=== PATIENT | female | born 1965 | race Caucasian/White ===

== ENCOUNTER → 2016-10-01 | Outpatient (CLI) | payer BC ==
--- NOTE | 2016-10-02 15:43 | Diagnostic Imaging Report ---
Bilateral screening mammogram 2D views with tomosynthesis The current study was also evaluated with a Computer Aided Detection (CAD) system. INDICATION: Screening. No current complaints stated on the questionnaire. COMPARISON: 09/18/2015. FINDINGS: The breasts are composed of heterogeneously dense parenchyma which may decrease mammographic sensitivity. Punctate calcifications are seen. Allowing for technique and positional differences, no suspicious change is seen. IMPRESSION: No significant change. ACR BI-RADS Category 2: Benign findings. Result letter will be mailed to the patient. Note: At least 10% of breast cancer is not imaged by mammography. Dictated by: Dictated on workstation # [id number]
== END ==
LOC: RAD 08:39
PROVIDERS: ATTEND Internal Medicine
DX: Z12.31 Encounter for screening mammogram for malignant neoplasm of breast (principal)
CPT/HCPCS: 77067

== ENCOUNTER → 2017-10-06 | Outpatient (CLI) | payer BC ==
--- NOTE | 2017-10-06 12:10 | Diagnostic Imaging Report ---
INDICATION: Routine screening. COMPARISON: Comparison is made with prior studies from 10/01/2016 and 09/18/2015. TECHNIQUE: 2D and 3D bilateral screening mammography was performed with computer-aided detection (CAD) system. FINDINGS: Both breasts are heterogeneously dense, limiting the sensitivity of mammography. Intraparenchymal lymph nodes in the outer right breast appear stable. No new mass or malignant appearing microcalcifications are seen. The axillae are unremarkable. IMPRESSION: No mammographic features suspicious for malignancy are identified. ACR BI-RADS Category 2: Benign findings. Result letter will be mailed to the patient. Note: At least 10% of breast cancer is not imaged by mammography. Dictated by: Dictated on workstation # [id number]
== END ==
LOC: RAD 09:26
PROVIDERS: ATTEND Internal Medicine
DX: Z12.31 Encounter for screening mammogram for malignant neoplasm of breast (principal)
CPT/HCPCS: 77067

== ENCOUNTER 2017-10-15 09:05 | Outpatient (RCR) | payer BC ==
[2017-10-13 13:10] VITALS: BP 125/70
[2017-10-13] MEDS: IRON SUCROSE 200 MG/10 ML (VENOFER) VIAL IV SCH (13:20)
[~2017-10-15] VITALS: Ht 165.1 cm; Wt 79.4 kg
[2017-10-15 09:05] VITALS: BP 124/72
[~2017-10-15 09:05] MED LIST: IRON SUCROSE 200 MG/10 ML (VENOFER) VIAL IV ONE
[2017-10-15] MEDS: IRON SUCROSE 200 MG/10 ML (VENOFER) VIAL IV SCH (09:11)
== END 2017-11-06 | disposition home or self-care (01) ==
LOC: SDC 09:05 → EDSTATUS 10-23 10:24
PROVIDERS: ATTEND Internal Medicine
DX: D64.9 Anemia, unspecified (principal)
CPT/HCPCS: 96365

== ENCOUNTER 2018-03-08 09:59 | Outpatient (RCR) | payer BC ==
[2018-03-05] MEDS: IRON SUCROSE 200 MG/10 ML (VENOFER) VIAL IV SCH (16:10)
[2018-03-05 17:00] VITALS: BP 113/73
[~2018-03-08] VITALS: Ht 165.1 cm; Wt 79.4 kg
[2018-03-08] MEDS ORDERED: IRON SUCROSE 200 MG/10 ML (VENOFER) VIAL IV ONE (10:00)
[2018-03-08 10:14] VITALS: BP 119/71
[2018-03-08] MEDS: IRON SUCROSE 200 MG/10 ML (VENOFER) VIAL IV SCH (10:14)
== END 2018-06-03 | disposition home or self-care (01) ==
LOC: SDC 09:59
PROVIDERS: ATTEND Internal Medicine
DX: D64.9 Anemia, unspecified (principal)
CPT/HCPCS: 96365

== ENCOUNTER → 2018-12-14 | Outpatient (CLI) | payer BC ==
--- NOTE | 2018-12-14 12:45 | Diagnostic Imaging Report ---
INDICATION: Routine screening. COMPARISON: Comparison is made with prior mammograms from 10/06/2017 and 10/01/2016. TECHNIQUE: 2-D and 3-D bilateral screening mammography was performed. The current study was also evaluated with a Computer Aided Detection (CAD) system. 3-D tomosynthesis was also performed and reviewed. FINDINGS: There are benign calcifications bilaterally. No mass or malignant-appearing microcalcifications are seen. Axillae are unremarkable. IMPRESSION: No mammographic features suspicious for malignancy are identified. ACR BI-RADS Category 2: Benign findings. Result letter will be mailed to the patient. Note: At least 10% of breast cancer is not imaged by mammography. Dictated by: Dictated on workstation # [id number]
== END ==
LOC: RAD 10:18
PROVIDERS: ATTEND Internal Medicine
DX: Z12.31 Encounter for screening mammogram for malignant neoplasm of breast (principal)
CPT/HCPCS: 77067

== ENCOUNTER → 2019-12-20 | Outpatient (CLI) | payer BC ==
--- NOTE | 2019-12-20 13:23 | Diagnostic Imaging Report ---
INDICATION: Routine screening. COMPARISON: 12/14/2018 and 10/06/2017. TECHNIQUE: 2D and 3D bilateral screening mammography was performed with CAD. FINDINGS: Both breasts are heterogeneously dense, limiting the sensitivity of mammography. The parenchymal pattern is stable. There are benign calcifications present. No mass or malignant appearing microcalcifications are seen. The axillae are unremarkable. IMPRESSION: No mammographic features suspicious for malignancy are identified. ACR BI-RADS Category 2: Benign findings. Result letter will be mailed to the patient. Note: At least 10% of breast cancer is not imaged by mammography. Dictated by: Dictated on workstation # [id number]
== END ==
LOC: RAD 13:15
PROVIDERS: ATTEND Internal Medicine
DX: Z12.31 Encounter for screening mammogram for malignant neoplasm of breast (principal)
CPT/HCPCS: 77063; 77067

== ENCOUNTER 2020-02-10 05:34 | Outpatient (RCR) | payer BC ==
[~2020-02-10] VITALS: Ht 165.1 cm; Wt 70.9 kg
== END 2020-02-10 10:03 | disposition home or self-care (01) ==
LOC: PREOP 05:34
PROVIDERS: ATTEND Surgery
DX: Z01.812 Encounter for preprocedural laboratory examination (principal); Z12.11 Encounter for screening for malignant neoplasm of colon; Z20.828 Contact with and (suspected) exposure to other viral communicable diseases
CPT/HCPCS: 87635

== ENCOUNTER 2020-02-14 07:59 | Day surgery (SDC) | payer BC ==
[~2020-02-14] VITALS: Ht 165 cm; Wt 71.0 kg
[2020-02-14] MEDS ORDERED: LACTATED RINGERS 1,000 ML IV ONE (08:07)
[2020-02-14] MEDS ORDERED: LACTATED RINGERS 1,000 ML IV STA (08:09)
[2020-02-14 08:20] VITALS: BP 125/78
[2020-02-14] MEDS ORDERED: PROPOFOL INJECTION 0 ML IV ONE (08:53)
[2020-02-14] MEDS ORDERED: MIDAZOLAM 2 MG/2 ML (VERSED) VIAL ONE (09:11)
[2020-02-14] MEDS ORDERED: PROPOFOL INJECTION 50 ML IV ONE (09:11)
[2020-02-14 09:45] VITALS: BP 88/54
[2020-02-14 09:50] VITALS: BP 89/52
--- NOTE | 2020-02-14 09:51 | Progress Note-Post Operative ---
Post-Operative Progess Note Surgeon (s)/Rail Manager (s) Surgeon YOUSIF WRIGHT DO Rail Manager: na Pre-Operative Diagnosis screening colon Post-Operative Diagnosis diverticulosis Procedure & Operative Findings Date of Procedure 02/14/20 Procedure Performed/Findings colonoscopy Anesthesia Type per assistant professor Estimated Blood Loss Estimated blood loss (mL): min Specimens/Packing Specimens Removed na YOUSIF WRIGHT DO Feb 14, 2020 09:51
--- NOTE | 2020-02-14 09:52 | Discharge Inst-Simple/Standard ---
Discharge Inst-Standard Patient Instructions/Follow Up Plan of Care/Instructions/FU: repeat colonoscopy in 10 years unless family history of colon cancer which would be 5 years. any issues with bowels before then be seen at that time. High fiber diet due to diverticulosis. If you need to discuss anything, please make appointment. Activity as Tolerated: Yes Discharge Diet: Regular Diet (high fiber) YOUSIF WRIGHT DO Feb 14, 2020 09:52
[2020-02-14 09:55] VITALS: BP 88/51
--- NOTE | 2020-02-14 10:19 | Anesthesia-General Post-Op ---
MAC Patient Condition Mental Status/LOC: Same as Preop Cardiovascular: Satisfactory Nausea/Vomiting: Absent Respiratory: Satisfactory Pain: Controlled Complications: Absent Post Op Complications Complications None Follow Up Care/Instructions Patient Instructions None needed. Anesthesiology Discharge Order Discharge Order Patient is doing well, no complaints, stable vital signs, no apparent adverse anesthesia problems. No complications reported per nursing. KELLY CAPPS CRNA Feb 14, 2020 10:19
[2020-02-14 10:30] VITALS: BP 88/51
--- NOTE | 2020-02-14 14:14 | OPERATIVE REPORT ---
DATE OF SERVICE: 02/14/2020 PREOPERATIVE DIAGNOSIS: Screening colonoscopy. POSTOPERATIVE DIAGNOSES: Diverticulosis, internal hemorrhoids. PROCEDURE: Colonoscopy. SURGEON: Yousif Mauro DO ANESTHESIA: Per LEATHER SPRAYER. ESTIMATED BLOOD LOSS: None. COMPLICATIONS: None. INDICATIONS: The patient is a 54-year-old female due for screening colonoscopy. She understands risks and benefits of procedure and wished to proceed with procedure. Consent was signed in the chart. DESCRIPTION OF PROCEDURE: The patient was taken to the endoscopy suite, placed in left lateral recumbent position. Timeout was performed. Digital rectal exam was performed just noting some slight hemorrhoidal disease. No palpable polyps, masses or ulcerations. Scope was inserted in the rectum and advanced all the way to cecum with minimal difficulty. Prep was adequate. Scope was then slowly retracted back. There were no polyps, masses or ulcerations within the cecum, ascending, transverse, descending colon and sigmoid colon, there is minimal amount of diverticulosis present. Scope was then continuously retracted back in the rectum, it was also retroflexed just noting some slight internal hemorrhoids. Scope was returned to its normal position, slowly withdrawn until completely removed. The patient tolerated procedure well without any complications. She was taken to recovery room in stable condition. RECOMMENDATIONS: The patient recommended high fiber diet. We would also recommend repeat colonoscopy in 10 years unless family history of colon cancer, which then be 5 years. Any issues before that would be reevaluated at that time for repeat colonoscopy. Job ID: [id number] DocumentID: [id number] Dictated Date: 02/14/2020 09:54:56 Bin Filler Date: 02/14/2020 14:13:50 Dictated By: YOUSIF MAURO DO
== END 2020-02-14 10:30 | disposition home or self-care (01) ==
LOC: ENDO 07:59
PROVIDERS: ATTEND Surgery
DX: Z12.11 Encounter for screening for malignant neoplasm of colon (principal); K57.30 Diverticulosis of large intestine without perforation or abscess without bleeding; K64.8 Other hemorrhoids; K44.9 Diaphragmatic hernia without obstruction or gangrene; E66.9 Obesity, unspecified; Z68.26 Body mass index [BMI] 26.0-26.9, adult; Z79.899 Other long term (current) drug therapy; Z88.1 Allergy status to other antibiotic agents

== ENCOUNTER → 2021-03-18 | Outpatient (CLI) | payer BC ==
--- NOTE | 2021-03-18 10:36 | Diagnostic Imaging Report ---
INDICATION: Routine screening. COMPARISON: 12/20/2019 and 12/14/2018. TECHNIQUE: 2D and 3D bilateral screening mammography was performed with CAD. FINDINGS: Both breasts remain heterogeneously dense, limiting the sensitivity of mammography. The parenchymal pattern is stable. No mass or malignant-appearing microcalcifications are seen. There are benign calcifications present. The axillae are unremarkable. IMPRESSION: No mammographic features suspicious for malignancy are identified. ACR BI-RADS Category 2: Benign findings. Result letter will be mailed to the patient. Note: At least 10% of breast cancer is not imaged by mammography. Dictated by: Dictated on workstation # [id number]
== END ==
LOC: RAD 08:45
PROVIDERS: ATTEND Internal Medicine
DX: C20 Malignant neoplasm of rectum (principal); C79.51 Secondary malignant neoplasm of bone; C78.01 Secondary malignant neoplasm of right lung
CPT/HCPCS: 77063; 77067

== ENCOUNTER → 2022-08-13 | Outpatient (CLI) | payer BC ==
--- NOTE | 2022-08-13 12:25 | Diagnostic Imaging Report ---
INDICATION: Routine screening. Comparison is made with prior mammogram from 03/18/2021 and 12/20/2019. 2-D and 3-D bilateral screening mammography was performed with CAD. Both breasts are heterogeneously dense, limiting the sensitivity of mammography. There are benign calcifications. No mass or malignant-appearing microcalcifications are seen. Axillae are unremarkable. IMPRESSION: No mammographic features suspicious for malignancy are identified. ACR BI-RADS Category 2: Benign findings. Result letter will be mailed to the patient. Note: At least 10% of breast cancer is not imaged by mammography. BI-RADS Category 2 Dictated by: Dictated on workstation # [id number]
== END ==
LOC: RAD 09:45
PROVIDERS: ATTEND Internal Medicine
DX: Z12.31 Encounter for screening mammogram for malignant neoplasm of breast (principal)
CPT/HCPCS: 77063; 77067